=== PATIENT | female | born 1995 | race American Indian/Alaskan Native ===

== ENCOUNTER 2019-06-21 20:36 | Emergency (ER) | payer SELFPAY ==
[2019-06-21 20:49] VITALS: BP 137/85
--- NOTE | 2019-06-21 20:51 | Event Note ---
ED Screening Note Date of service: 06/21/19 Time: 20:49 ED Screening Note: This is a 24 y.o. F. that presents to the ER with pain in 4th toe. Patient is 26 weeks [facility] in [place], [place]. 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 Denies falling This initial assessment/diagnostic orders/clinical plan/treatment(s) is/are subject to change based on patients health status, clinical progression and re- assessment by fellow clinical providers in the ED. Further treatment and workup at subsequent clinical providers discretion. Patient/guardian urged not to elope from the ED as their condition may be serious if not clinically assessed and managed. Initial orders include:
[2019-06-21] MEDS ORDERED: ACETAMINOPHEN 500 MG TAB PO ONE (21:59)
--- NOTE | 2019-06-21 22:46 | Emergency Department Report ---
ED Lower Extremity HPI - General Chief Complaint: Extremity Injury, Lower Stated Complaint: LEFT FOOT PAIN Time Seen by Provider: 06/21/19 20:48 Source: patient Mode of arrival: Ambulatory Limitations: No Limitations - History of Present Illness Initial Comments: This is a 24 y.o. F. that presents to the ER with pain in 4th toe. Patient is 26 weeks [facility] in [place], [place]. 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 Denies falling, There is no related problem. tp pt remains ambulatory MD Complaint: foot injury Onset/Timin -: hour(s) Injury: Toes: Left (left 4th digit ) Type of Injury: blunt Place: home Severity: moderate Severity scale (0 -10): 4 Improves With: other (nothing tried ) Worsens With: weight bearing Context: direct blow Associated Symptoms: tingling, ambulatory - Related Data Previous Rx's Medication Instructions Recorded Last Taken Type Acetaminophen [Acetaminophen TAB] 1,000 mg PO Q6HR #30 tablet 06/21/19 Unknown Rx ED Review of Systems ROS: Stated complaint: LEFT FOOT PAIN Other details as noted in HPI Constitutional: denies: chills, fever Eyes: denies: eye pain, eye discharge, vision change ENT: denies: ear pain, throat pain Respiratory: denies: cough, shortness of breath, wheezing Cardiovascular: denies: chest pain, palpitations Endocrine: no symptoms reported Gastrointestinal: denies: abdominal pain, nausea, diarrhea Genitourinary: denies: urgency, dysuria, discharge Musculoskeletal: other (left 4th toe pain ). denies: back pain, joint swelling, arthralgia Skin: denies: rash, lesions Neurological: denies: headache, weakness, paresthesias Psychiatric: denies: anxiety, depression Hematological/Lymphatic: denies: easy bleeding, easy bruising ED Past Medical Hx - Past Medical History Previous Medical History?: No - Surgical History Past Surgical History?: No - Social History Smoking Status: Former Smoker Substance Use Type: None - Medications Home Medications: Home Medications Medication Instructions Recorded Confirmed Last Taken Type Acetaminophen [Acetaminophen TAB] 1,000 mg PO Q6HR #30 tablet 06/21/19 Unknown Rx ED Physical Exam - General Limitations: No Limitations General appearance: alert, in no apparent distress - Head Head exam: Present: atraumatic, normocephalic - Eye Eye exam: Present: normal appearance, PERRL, EOMI Pupils: Present: normal accommodation - ENT ENT exam: Present: mucous membranes moist - Neck Neck exam: Present: normal inspection, full ROM. Absent: tenderness - Respiratory Respiratory exam: Present: normal lung sounds bilaterally. Absent: respiratory distress, wheezes, stridor, chest wall tenderness - Cardiovascular Cardiovascular Exam: Present: regular rate, normal rhythm, normal heart sounds. Absent: systolic murmur, diastolic murmur, rubs, gallop - GI/Abdominal GI/Abdominal exam: Present: soft, normal bowel sounds. Absent: distended, tenderness, bruit, hernia - Rectal Rectal exam: Present: deferred - Extremities Exam Extremities exam: Present: full ROM, tenderness (left 4th toe ), normal capillary refill. Absent: pedal edema, joint swelling, calf tenderness - Expanded Lower Extremity Exam Left Foot/Toe exam: Present: tenderness, deformity. Absent: swelling, abrasion, laceration, ecchymosis, crepidus, dislocation, erythema, amputation, puncture wound, foreign body, calcaneal tenderness, tenderness at base of 5th metatarsal, nail avulsion, subungual hematoma Neuro vascular tendon exam: Absent: pulse deficit, abnormal cap refill, motor deficit, sensory deficit, tendon deficit Gait: Positive: observed and limited by pain - Back Exam Back exam: Present: normal inspection, full ROM. Absent: tenderness, CVA tenderness (R), CVA tenderness (L), vertebral tenderness, rash noted - Neurological Exam Neurological exam: Present: alert, oriented X3, CN II-XII intact, reflexes normal. Absent: motor sensory deficit - Expanded Neurological Exam Expanded Patient oriented to: Present: person, place, time Motor strength exam: RLE: 5, LLE: 5 Best Eye Response ([place]): (4) open spontaneously Best Motor Response ([place]): (6) obeys commands Best Verbal Response ([place]): (5) oriented [place] Total: 15 - Psychiatric Psychiatric exam: Present: normal affect, normal mood - Skin Skin exam: Present: warm, dry, intact, normal color. Absent: rash ED Course Vital Signs 06/21/19 20:43 Temperature 98.1 F Pulse Rate 102 H Respiratory 18 Rate Blood Pressure 137/85 O2 Sat by Pulse 98 Oximetry - Orthopedic Fracture Reduction Fracture #1 Consent Obtained: verbal consent Time Out Performed: Yes (LEFT 4TH Toe reduction for closed 4th fracture with minimal displacerment ) Side: left Fracture Reduction Location: toe Analgesia: none Technique: direct manipulation Post Reduction X-rays Demonstrate: acceptable reduction Post-Reduction Neuro Exam: intact Post-Reduction Vascular Exam: intact Splint Applied: Yes (KALLIE TAPED ) Patient Tolerated Procedure: well Additional Comments: toe reduced by direct distal traction, reduced with minimal effort, rom intact distal pulse pluse @ bilat, toe kallie taped, postop shoe applied , there is no swelling no erythema no ecchymosis pt is ambulatory with steady gait post procedure pt tolerated procedure with minimal distress, pt states pain improved to 1/10 will follow up with ortho in 2-3 days, pt and family member verbalized agreement and understanding of same. ED Lower Extremity MDM - Radiology Data Radiology results: image reviewed closed dital toe fracture - Medical Decision Making this closed 4th toe fracture see procedure note , pt is currently ambulatory with postop shoe, distal pulse intact , no numbness or swelling, no deformity, pt given follow up instruction to orthopedics in 2-3 days, will return to ed if symptoms worsen, pain is controlled with tylenol po. Critical care attestation.: If time is entered above; I have spent that time in minutes in the direct care of this critically ill patient, excluding procedure time. ED Disposition Clinical Impression: Closed fracture of toe, phalanx Qualifiers: Encounter type: initial encounter Toe: lesser toe Phalanx: distal Fracture alignment: displaced Laterality: left Qualified Code(s): S92.532A - Displaced fracture of distal phalanx of left lesser toe(s), initial encounter for closed fracture Disposition: - TO HOME OR SELFCARE Is pt being admited?: No Does the pt Need Aspirin: No Condition: Stable Instructions: Toe Fracture (ED) Prescriptions: Acetaminophen [Acetaminophen TAB] 1,000 mg PO Q6HR #30 tablet Referrals: YESI LOVE MD [Staff Physician] - 3-5 Days Forms: Work/School Release Form(ED) Time of Disposition: 22:56
--- NOTE | 2019-06-21 22:48 | XRay Report ---
EXAMINATION: Left foot radiograph, one view, 06/21/2019 CLINICAL INFORMATION: Left foot pain and trauma. COMPARISON: None. FINDINGS: There is a mildly angulated fracture at the base of the fourth proximal phalanx. There is a lso a small chip fracture at the distal aspect of the third proximal phalanx. IMPRESSION: Fractures of the third and fourth digit as above. Signer Name: Casi Espinoza MD Signed: 06/21/2019 10:43 PM Workstation Name: [id number]
== END 2019-06-21 22:59 | disposition home or self-care (01) ==
LOC: ED 20:36
DX: O9A.212 Injury, poisoning and certain other consequences of external causes complicating pregnancy, second trimester (principal); S92.532A Displaced fracture of distal phalanx of left lesser toe(s), initial encounter for closed fracture; Z87.891 Personal history of nicotine dependence; W22.8XXA Striking against or struck by other objects, initial encounter; Y93.89 Activity, other specified; Y92.89 Other specified places as the place of occurrence of the external cause; Y99.8 Other external cause status

== ENCOUNTER 2019-08-02 14:13 | Outpatient (CLI) | payer MEDICAID, OTHER ==
[2019-08-02 15:36] VITALS: BP 110/66
[2019-08-02] MEDS ORDERED: LACTATED RINGERS 500 ML IV ONE (15:47)
[2019-08-02 16:30] LABS: Bacteria,Urine 2+ /HPF (Negative); Bilirubin,Urine NEG (Negative); Blood,Urine NEG (Negative); Color,Urine Yellow (Yellow); Protein,Urine <15 mg/dL mg/dL (Negative); Urobilinogen,Urine < 2.0 mg/dL (<2.0)
== END 2019-08-02 17:10 | disposition home or self-care (01) ==
LOC: TRG 14:13
PROVIDERS: ATTEND Obstetrics & Gynecology
DX: O47.03 False labor before 37 completed weeks of gestation, third trimester (principal); Z3A.32 32 weeks gestation of pregnancy
CPT/HCPCS: 59025; 81001